=== PATIENT | female | born 1970 | race Hispanic/Latino ===

== ENCOUNTER 2023-09-17 18:33 | Emergency (ER) | payer OTHER ==
[~2023-09-17] VITALS: Ht 167.6 cm; Wt 80.3 kg
[2023-09-17] MEDS ORDERED: ONDANSETRON HCL INJ 2MG/ML 2ML 2 MG/ML VIAL ONE (19:38)
[2023-09-17] MEDS ORDERED: LACTATED RINGER'S 1,000 ML ONE ×2 (19:39→20:43)
[2023-09-17] MEDS ORDERED: KETOROLAC TROMETHAMINE 30 MG/ML VIAL ONE (19:39)
[2023-09-17] MEDS ORDERED: CEFTRIAXONE 1 GM VIAL ONE (19:40)
[2023-09-17] MEDS: ONDANSETRON HCL INJ 2MG/ML 2ML 2 MG/ML VIAL IV STA (19:43)
[2023-09-17] MEDS: KETOROLAC TROMETHAMINE 30 MG/ML VIAL IV STA (19:43)
[2023-09-17] MEDS: LACTATED RINGER'S 1,000 ML INJ ONE ×2 (20:00→20:40)
[2023-09-17 22:16] VITALS: O2SAT 100
[2023-09-17] MEDS ORDERED: CEFDINIR300 MG PO (22:16)
[2023-09-17 22:26] VITALS: TEMP 96.9
== END 2023-09-17 22:31 | disposition home or self-care (01) ==
LOC: FSED 18:37
DX: R50.9 Fever, unspecified (principal); N12 Tubulo-interstitial nephritis, not specified as acute or chronic; J98.4 Other disorders of lung; E86.0 Dehydration; N20.2 Calculus of kidney with calculus of ureter; E11.9 Type 2 diabetes mellitus without complications; I25.10 Atherosclerotic heart disease of native coronary artery without angina pectoris; E78.5 Hyperlipidemia, unspecified; J45.909 Unspecified asthma, uncomplicated
CPT/HCPCS: 71250; 74176; 80048; 80076; 81003; 83605; 85025; 87040; 87086; 99284; J0696; J1885; J2405; J7121